=== PATIENT | male | born 1940 | race Caucasian/White ===

== ENCOUNTER 2017-08-03 19:48 | Emergency (ER) | payer BC, MEDICARE ==
[~2017-08-03] VITALS: Ht 177.8 cm; Wt 108.9 kg
[~2017-08-03 19:48] MED LIST: ASPI-1093 PO; CARV6.25 PO; CHOL20001 PO; GLU500 PO; ISOS60TE PO; LEVO0.0512 PO; METF500T PO; RANO500T3 PO; SIMV40TA5 PO; SYN.05 PO
[2017-08-03 19:55] VITALS: BP 157/98
--- NOTE | 2017-08-03 20:01 | NUR ---
PT AMBULATED TO ER BED 10
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
--- NOTE | 2017-08-03 20:53 | NUR ---
Patient discharged with v/s stable. Written and verbal after care instructions given and explained. Patient verbalized understanding. Ambulatory with steady gait. All questions addressed prior to discharge. Advised to follow up with PMD.
[2017-08-03 20:54] VITALS: BP 143/75
== END 2017-08-03 20:53 | disposition home or self-care (01) ==
LOC: MED 19:48
DX: S61.412A Laceration without foreign body of left hand, initial encounter (principal); I10 Essential (primary) hypertension; E11.9 Type 2 diabetes mellitus without complications; Z86.73 Personal history of transient ischemic attack (TIA), and cerebral infarction without residual deficits; Z79.84 Long term (current) use of oral hypoglycemic drugs; Z79.899 Other long term (current) drug therapy; W45.8XXA Other foreign body or object entering through skin, initial encounter; Y93.89 Activity, other specified; Y92.89 Other specified places as the place of occurrence of the external cause; Y99.8 Other external cause status
CPT/HCPCS: 12001; 73140; 90471; 90715; 99284; Q0092

== ENCOUNTER 2022-06-02 11:44 | Emergency (ER) | payer OTHER ==
[~2022-06-02] VITALS: Ht 160 cm; Wt 85.3 kg
[~2022-06-02 11:44] MED LIST changes: -CHOL20001 PO; +CHOL200047 PO; +METF-346 PO; -METF500T PO; +SIMV-34 PO; -SIMV40TA5 PO
[2022-06-02 11:50] VITALS: BP 116/57
--- NOTE | 2022-06-02 11:56 | NUR ---
Patient was wheelchair assisted to bed 6.
--- NOTE | 2022-06-02 12:18 | NUR ---
DR DUNN AT BEDSIDE
[2022-06-02] MEDS ORDERED: TRANEXAMIC ACID 1,000 MG/10 ML VIAL MC ONE (12:20)
[2022-06-02] MEDS ORDERED: LIDOCAINE/EPI MPF 1%1:200000 30 ML VIAL INJ ONE (13:40)
[2022-06-02] MEDS ORDERED: LIDOCAINE/EPI 1% 1:100000 20 ML VIAL INJ SCH (13:55)
[2022-06-02] MEDS ORDERED: TRAM50TA3 PO (14:16)
[2022-06-02 15:53] VITALS: BP 131/76
--- NOTE | 2022-06-02 15:53 | NUR ---
Patient discharged with v/s stable. Written and verbal after care instructions given. Patient verbalized understanding. Wheel Chair Assisted with to car. All questions addressed prior to discharge. Advised to follow up with PMD.
== END 2022-06-02 15:53 | disposition home or self-care (01) ==
LOC: MED 11:44
DX: S01.512A Laceration without foreign body of oral cavity, initial encounter (principal); I25.2 Old myocardial infarction; Z86.73 Personal history of transient ischemic attack (TIA), and cerebral infarction without residual deficits; X58.XXXA Exposure to other specified factors, initial encounter; Y93.89 Activity, other specified; Y92.89 Other specified places as the place of occurrence of the external cause; Y99.8 Other external cause status
CPT/HCPCS: 12011; 99282; J2001; J3490

== ENCOUNTER 2022-11-15 16:20 | Emergency (ER) | payer OTHER ==
[~2022-11-15] VITALS: Ht 177.8 cm; Wt 88.9 kg
[2022-11-15 16:42] VITALS: BP 163/80; PULSE 90; RESP 18; TEMP 96.5; O2SAT 96
--- NOTE | 2022-11-15 17:07 | NUR ---
AMBULATED TO BED3 , REPORT TO CORY DURBIN
--- NOTE | 2022-11-15 17:10 | NUR ---
PT OFF THE UNIT IN CT-SCAN.
--- NOTE | 2022-11-15 17:21 | NUR ---
PT RETURNED BACK TO BED FROM CT-SCAN.
--- NOTE | 2022-11-15 17:55 | NUR ---
MD HER AT EVALUATING THE PT.
--- NOTE | 2022-11-15 18:00 | NUR ---
LONG ARM POSTERIOR APPLIED TO R ARM. BEVERLY WRAP X 3. + CMS.
[2022-11-15 18:51] VITALS: BP 150/87; PULSE 82; RESP 18; TEMP 98.1; O2SAT 97
== END 2022-11-15 18:20 | disposition home or self-care (01) ==
LOC: MED 16:20
DX: S52.131A Displaced fracture of neck of right radius, initial encounter for closed fracture (principal); E11.9 Type 2 diabetes mellitus without complications; I10 Essential (primary) hypertension; E07.9 Disorder of thyroid, unspecified; Z86.73 Personal history of transient ischemic attack (TIA), and cerebral infarction without residual deficits; Z98.890 Other specified postprocedural states; Z79.899 Other long term (current) drug therapy; W22.8XXA Striking against or struck by other objects, initial encounter; Y93.89 Activity, other specified; Y92.89 Other specified places as the place of occurrence of the external cause; Y99.8 Other external cause status
CPT/HCPCS: 29105; 70450; 73080; 99284

== ENCOUNTER 2022-12-16 08:31 | Emergency (ER) | payer OTHER ==
[~2022-12-16] VITALS: Ht 170.2 cm; Wt 90.7 kg
[2022-12-16 09:02] VITALS: BP 156/85; PULSE 79; RESP 17; TEMP 97.4; O2SAT 97
[2022-12-16 09:58] VITALS: BP 120/79; PULSE 69; RESP 16; TEMP 97.8; O2SAT 99
== END 2022-12-16 10:30 | disposition home or self-care (01) ==
LOC: MED 08:31
DX: S00.512A Abrasion of oral cavity, initial encounter (principal); I11.0 Hypertensive heart disease with heart failure; I50.9 Heart failure, unspecified; I25.10 Atherosclerotic heart disease of native coronary artery without angina pectoris; Z86.73 Personal history of transient ischemic attack (TIA), and cerebral infarction without residual deficits; I25.2 Old myocardial infarction; Z87.448 Personal history of other diseases of urinary system; Z79.899 Other long term (current) drug therapy; X58.XXXA Exposure to other specified factors, initial encounter; Y92.89 Other specified places as the place of occurrence of the external cause; Y93.89 Activity, other specified; Y99.8 Other external cause status
CPT/HCPCS: 99281